=== PATIENT | female | born 1970 | race Caucasian/White ===

== ENCOUNTER → 2017-11-21 | Outpatient (CLI) | payer OTHER ==
[~2017-11-21] MED LIST: ALPR0.5T3 PO; NAPR-855 PO; OMEP20TA93 PO; [UNRECOGNIZED DRUG - CODE] PO
[2017-11-21 11:41] LABS: HEMATOCRIT 40.6 % (35.0-46.0); HEMOGLOBIN 13.4 GM/DL (11.6-15.3); MEAN CELL VOLUME 84.2 FL (80.0-100.0); MEAN CORPUSCULAR HEMOGLOBIN 27.7 PG (27.0-34.0); MEAN PLATELET VOLUME 8.9 FL (7.0-11.0); PLATELET COUNT 285 TH/MM3 (150-450); RED BLOOD COUNT 4.83 MIL/MM3 (4.00-5.30); RED CELL DISTRIBUTION WIDTH 13.6 % (11.6-17.2); WHITE BLOOD COUNT 9.8 TH/MM3 (4.0-11.0)
[2017-11-21 12:06] LABS: CALCIUM 8.8 MG/DL (8.5-10.1); CREATININE 0.84 MG/DL (0.50-1.00)
== END ==
LOC: CPRE 10:55
PROVIDERS: ATTEND Obstetrics & Gynecology
DX: Z01.812 Encounter for preprocedural laboratory examination (principal); N93.9 Abnormal uterine and vaginal bleeding, unspecified
CPT/HCPCS: 36415; 80048; 85027

== ENCOUNTER 2017-11-30 05:34 | Observation (INO) | payer OTHER ==
[~2017-11-30] VITALS: Ht 154.9 cm; Wt 74.3 kg
[~2017-11-30 05:34] MED LIST changes: -NAPR-855 PO
[2017-11-30] MEDS ORDERED: POVIDONE IODINE 5% (ANTISEPSIS KIT) 4 APPLICATIONS EACH NARE PRN (06:00)
[2017-11-30] MEDS ORDERED: LACTATED RINGER'S 1000 ML IV PRN (06:00)
[2017-11-30] MEDS ORDERED: CHLORHEXIDINE GLUCONATE 2 % 1 PACK (2 CLOTHS) TOPICAL PRN (06:00)
[2017-11-30] MEDS ORDERED: ceFAZolin 2 GM in NS 100 ML IV SCH (06:00)
[2017-11-30] MEDS ORDERED: SODIUM CHLORID 0.9% 500 ML IV PRN (06:00)
[2017-11-30] MEDS ORDERED: METOPROLOL TARTRATE 25 MG TAB PO PRN (06:00)
[2017-11-30] MEDS ORDERED: ACETAMINOPHEN 1000 MG/100 ML 100 ML IV ONE (06:28)
[2017-11-30] MEDS ORDERED: FAMOTIDINE 20 MG/2 ML VIAL ONE (06:29)
[2017-11-30] MEDS ORDERED: MIDAZOLAM HCL 2 MG/2 ML VIAL ONE ×2 (06:29→06:46)
[2017-11-30] MEDS ORDERED: APREPITANT 40 MG CAP ONE (06:46)
[2017-11-30] MEDS ORDERED: ONDANSETRON HCL 4 MG/2 ML VIAL ONE (06:46)
[2017-11-30] MEDS ORDERED: VASOPRESSIN 20 UNITS/ML VIAL ONE (06:57)
[2017-11-30] MEDS ORDERED: ESTROGENS CONJUGATED VAG CREA 15 APPL/30 GM TUBE ONE (06:57)
[2017-11-30] MEDS ORDERED: LIDOCAINE 1%/EPINEPHrine 1:100,000 SOLN 30 ML VIAL ONE (06:57)
[2017-11-30] MEDS ORDERED: DO NOT ADM ANY ANTICOAGULANT DRUGS PRN (09:00)
[2017-11-30] MEDS ORDERED: LACTATED RINGER'S 1000 ML INJ 1,000 ML IV SCH (09:18)
[2017-11-30] MEDS ORDERED: *MEPERIDINE 25 MG INJ VIAL PERIprocedural Use ONLY ONE (09:19)
--- NOTE | 2017-11-30 09:28 | HHI.PR ---
Immediate Post Op Note Procedure Date: Nov 30, 2017 Pre Op Diagnosis: 1. Dysmenorrhea 2. Abnormal uterine bleeding Post Op Diagnosis: Same as above Surgeon: Bronson Barraza Wellness Assistant(s): Dr. Pollock was present and scrubbed throughout the case - Ana TALBERT MS3 present and scrubbed throughout the case as well Procedure: Total vaginal hysterectomy, right salpingectomy Findings: Normal external female genitalia vagina and cervix, nonvisualized left ovary, normal-appearing right ovary and fallopian tube. Additional Information: Antibiotics: 2 g Ancef preoperatively. DVT prophylaxis: Sequential compression devices throughout the case Complications: None Specimen(s) removed: Uterus, cervix, right fallopian tube to pathology routine Estimated blood loss: 150 cc Anesthesia: General Drains: None Fluids: 1400cc IVF Urinary Output (mLs): 100 Patient to: PACU Patient Condition: Good Bronson Barraza MD Nov 30, 2017 09:28
[2017-11-30] MEDS ORDERED: IBUPROFEN 600 MG TAB PO PRN (09:30)
[2017-11-30] MEDS ORDERED: ONDANSETRON ODT 4 MG TAB PO PRN (09:30)
[2017-11-30] MEDS ORDERED: diphenhydrAMINE HCL 25 MG CAP PO PRN (09:30)
[2017-11-30] MEDS ORDERED: oxyCODONE/ACETAMINOPHEN 5 MG/325 MG TAB PO PRN ×2 (09:30)
[2017-11-30] MEDS ORDERED: SODIUM CHLORIDE 0.9% FLUSH 10 ML FLUSH IV FLUSH PRN (09:30)
[2017-11-30] MEDS ORDERED: KETOROLAC TROMETHAMINE 30 MG/ML (IVP) VIAL IV PUSH ONE ×2 (09:30→12:00)
[2017-11-30] MEDS ORDERED: *HYDROmorphone PF 1 MG VIAL PERIprocedural Use ONLY ONE (09:57)
--- NOTE | 2017-11-30 09:59 | MP ---
cc: Bronson Barraza MD DATE OF OPERATION: 11/30/2017 DATE OF : 1970 DATE OF PROCEDURE: 11/30/2017. PREOPERATIVE DIAGNOSES: 1. Dysmenorrhea. 2. Abnormal uterine bleeding. POSTOPERATIVE DIAGNOSES: 1. Dysmenorrhea. 2. Abnormal uterine bleeding. PROCEDURE PERFORMED: Total vaginal hysterectomy with right salpingectomy. SURGEON: Bronson Barraza MD MEDICAL CLAIMS PROCESSOR SURGEON: Pat Pollock MD, was present and scrubbed throughout the case. Medical Student year 3, Ana Garcia was present and scrubbed throughout the case as well. FINDINGS: Normal external female genitalia, vagina and cervix. Nonvisualized left ovary and fallopian tube. Normal right ovary and right fallopian tube. ANTIBIOTICS: 2 grams Ancef preoperatively. DVT PROPHYLAXIS: Sequential compression devices throughout the case. ANESTHESIA: General endotracheal. PREOPERATIVE MEDICATIONS: 1 gram p.o. Tylenol and 600 mg p.o. gabapentin. SPECIMENS: Uterus, cervix, and right fallopian tube to pathology, routine. ESTIMATED BLOOD LOSS: 150 mL. FLUID REPLACEMENT: 1400 mL lactated Ringer's. URINE OUTPUT: 100 mL, clear via Holman. COUNTS: Correct x 2. TIMEOUT: Done, correct. COMPLICATIONS: None. DISPOSITION: Stable to PACU, then to floor. INDICATIONS: This patient is a 47-year-old female that was seen in the outpatient setting for the above diagnosis. She was counseled on options, risks, benefits and alternatives and expected outcomes of each, and she elected for hysterectomy. Please see H and P and consent for further details. DESCRIPTION OF PROCEDURE: The patient was taken to the operating room, placed in [facility] cane stirrups. After anesthesia was found to be adequate, she was prepped and draped in a sterile fashion. A weighted speculum was placed posteriorly and a Lauren anteriorly after Holman was inserted and clamped after allowed to drain. 1% lidocaine with epinephrine was used to inject circumferentially around the vesicocervical transition, 20 mL approximately were. Using a scalpel, this cervicovaginal epithelium was incised circumferentially and bluntly dissected cephalad. A posterior colpotomy was made with Rice scissors and a weighted [place] was placed into the peritoneal cavity. Uterosacrals were clamped, transected and transfixed with a suture of 0 Vicryl. Anterior colpotomy was made sharply, and a Lauren placed anteriorly into the peritoneal cavity using serial clamp, cut, and tie technique with 0 Vicryl. The uterine arteries, cardinal ligaments, round ligaments and uteroovarian ligaments were taken. The specimen was removed from the abdomen. There was some bleeding along the right pedicle of the uteroovarian ligament and the distal end of the fallopian tube. This was reincorporated with suture and the fallopian tube was removed. The pedicles were reinspected. The pelvis was irrigated and everything was found to be hemostatic. The left ovary was not able to be visualized. The posterior vaginal mucosa was sutured to the posterior peritoneum with running locking 0 Vicryl. The uterosacrals were tied at the midline to plicate and provide support and a running, unlocked vertical closure of the cuff incorporating the uterosacrals was done with 0 Vicryl. The Holman was removed and the patient tolerated the procedure well. MD ARIA Patel/DAMIEN , 09:36 AM , 09:58 AM DELORES
[2017-11-30 10:30] VITALS: BP 119/74; PULSE 80; RESP 18; TEMP 97.4; O2SAT 99
[2017-11-30] MEDS ORDERED: LIDOCAINE HCL 1% PF 5 ML SYRINGE OTHER ONE (12:00)
[2017-11-30] MEDS ORDERED: LACTATED RINGER'S 1000 ML INJ 1,000 ML IV ONE (12:00)
[2017-11-30] MEDS ORDERED: PROPOFOL 200 MG/20 ML AMP IV ONE (12:00)
[2017-11-30] MEDS ORDERED: DEXAMETHASONE SOD PHOS 4 MG/ML VIAL IV ONE (12:00)
[2017-11-30] MEDS ORDERED: NEOSTIGMINE 5 MG/5 ML SYRINGE IV PUSH ONE (12:00)
[2017-11-30] MEDS ORDERED: ROCURONIUM INJ 50 MG/5 ML SYRINGE IV PUSH ONE (12:00)
[2017-11-30] MEDS ORDERED: ESMOLOL HCL 100 MG/10 ML VIAL IV ONE (12:00)
[2017-11-30] MEDS ORDERED: GLYCOPYRROLATE 1 MG/5 ML SYRINGE IV PUSH ONE (12:00)
[2017-11-30] MEDS: ONDANSETRON HCL 4 MG/2 ML VIAL IVP PRN ×2 (12:36→21:41)
[2017-11-30] MEDS: GABAPENTIN 100 MG CAP PO SCH ×2 (13:00→18:00)
[2017-11-30 14:00] VITALS: BP 120/79; PULSE 79; RESP 18; TEMP 97.5; O2SAT 99
[2017-11-30] MEDS: HYDROmorphone HCL PF 2 MG/ML VIAL IV PRN ×2 (14:18→21:43)
[2017-11-30 17:50] VITALS: BP 144/88; PULSE 83; RESP 15; TEMP 98.1; O2SAT 100
--- NOTE | 2017-11-30 17:51 | HHI.PR ---
Subjective Remarks pain controlled, having nausea, just tried some sips of reza riddhi, no emesis, voiding, ambulating in room, no flatus. Objective Vital Signs Vital Signs Date Time Temp Pulse Resp B/P (MAP) Pulse Ox O2 Delivery O2 Flow Rate FiO2 11/30/17 14:00 97.5 79 18 120/79 (93) 99 11/30/17 10:30 97.4 80 18 119/74 (89) 99 11/30/17 10:00 98.2 78 14 121/64 (83) 97 Nasal Cannula 2 11/30/17 09:45 75 15 116/63 (80) 94 11/30/17 09:30 80 13 122/66 (84) 94 11/30/17 09:15 86 11 110/60 (77) 99 11/30/17 09:10 98.2 87 13 123/72 (89) 100 Simple Mask 6 11/30/17 06:04 98.3 91 20 135/90 (105) 97 I/O 11/29/17 11/29/17 11/29/17 11/30/17 11/30/17 11/30/17 07:00 15:00 23:00 07:00 15:00 23:00 Intake Total 1400 ml Output Total 350 ml Balance 1050 ml Intake IV Total 1400 ml Output Urine Total 200 ml Estimated Blood Loss 150 ml Objective Remarks Chest is clear, regular rate and rhythm. Abdomen is soft and non-distended. Ext no CCE. A/P Assessment and Plan 47 yo s/p TVH and RS for AUB / Dysmenorrhea 1. POD #0: doing well, AF, VSS, continue IV fluids until tolerate PO, add phenergan as another option, continue routine post op care, AM CBC. Bronson Barraza MD Nov 30, 2017 17:51
--- NOTE | 2017-11-30 17:52 | HHI.DS ---
Discharge Summary Admission Date Nov 30, 2017 at 09:21 Discharge Date: Dec 01, 2017 Admitting Diagnosis AUB / Dysmenorrhea Procedures TVH, RS Brief History 47 yo who presented for scheduled hysterectomy, underwent successful TVH and RS, met milestones on POD #1 and was d/c home. Pt Condition on Discharge: Good Discharge Disposition: Discharge Home Discharge Instructions DIET: Follow Instructions for: As Tolerated, No Restrictions Activities you can perform: Regular-No Restrictions Activities to avoid: Driving for 24 hrs, Lifting/Bending, Sexual Activity Follow up Referrals: CUSTOMER RETENTION SPECIALIST - 2 Weeks @ [facility] with Bronson Barraza MD New Medications: Naproxen (Naproxen) 375 Mg Tab 375 MG PO BID for Pain Management, #60 TAB 0 Refills Continued Medications: Alprazolam (Alprazolam) 0.5 Mg Tab 0.5 MG PO Q6H PRN for ANXIETY, TAB 0 Refills Levothyroxine (Unithroid) 75 Mcg Tab 75 MCG PO DAILY for Thyroid, #30 TAB 0 Refills Omeprazole (Omeprazole) 20 Mg Tab 20 MG PO DAILY, #30 TAB 0 Refills Bronson Barraza MD Nov 30, 2017 17:52
[2017-11-30 20:00] VITALS: BP 125/78; PULSE 98; RESP 18; TEMP 98; O2SAT 98
[2017-11-30] MEDS ORDERED: PROMETHAZINE INJ 25 MG/ML VIAL IM PRN (20:00)
[2017-11-30] MEDS ORDERED: SODIUM CHLORIDE 0.9% FLUSH 10 ML FLUSH IV FLUSH SCH (21:00)
[2017-11-30] MEDS ORDERED: ZOLPIDEM TARTRATE 5 MG TAB PO PRN (21:00)
[2017-11-30 23:56] VITALS: BP 121/70; PULSE 98; RESP 18; TEMP 98.1
[2017-12-01 04:10] VITALS: BP 119/67; PULSE 88; RESP 18; TEMP 98.6
[2017-12-01 05:58] LABS: AUTOMATED NEUTROPHIL # 12.1 TH/MM3 (1.8-7.7); BASOPHIL % 0.2 % (0.0-2.0); EOSINOPHIL % 0.1 % (0.0-4.0); HEMATOCRIT 34.3 % (35.0-46.0); HEMOGLOBIN 11.5 GM/DL (11.6-15.3); LYMPH % 11.2 % (9.0-44.0); LYMPHOCYTE # 1.7 TH/MM3 (1.0-4.8); MEAN CELL VOLUME 83.1 FL (80.0-100.0); MEAN CORPUSCULAR HEMOGLOBIN 27.8 PG (27.0-34.0); MEAN CORPUSCULAR HGB CONC 33.5 % (32.0-36.0); MEAN PLATELET VOLUME 9.3 FL (7.0-11.0); MONO % 7.5 % (0.0-8.0); MONOCYTE # 1.1 TH/MM3 (0-0.9); PLATELET COUNT 249 TH/MM3 (150-450); RED BLOOD COUNT 4.13 MIL/MM3 (4.00-5.30); RED CELL DISTRIBUTION WIDTH 13.4 % (11.6-17.2); WHITE BLOOD COUNT 14.9 TH/MM3 (4.0-11.0)
[2017-12-01] MEDS ORDERED: LEVOTHYROXINE SODIUM 75 MCG TAB PO SCH (06:00)
[2017-12-01 08:00] VITALS: BP 113/75; PULSE 78; RESP 18; TEMP 97.6; O2SAT 98
[2017-12-01 08:10] VITALS: BP 113/75; PULSE 78; RESP 18; TEMP 97.6; O2SAT 98
[2017-12-01] MEDS ORDERED: NAPR-855 PO (08:19)
--- NOTE | 2017-12-01 08:22 | HHI.PR ---
Subjective Remarks Doing well, pain is well controlled, voiding, ambulating, desires to eat more this AM. Objective Vital Signs Vital Signs Date Time Temp Pulse Resp B/P (MAP) Pulse Ox O2 Delivery O2 Flow Rate FiO2 12/01/17 08:00 97.6 78 18 113/75 (88) 98 12/01/17 04:10 98.6 88 18 119/67 (84) 11/30/17 23:56 98.1 98 18 121/70 (87) 11/30/17 22:45 18 11/30/17 20:00 98.0 98 18 125/78 (94) 98 11/30/17 17:50 98.1 83 15 144/88 (106) 100 11/30/17 14:00 97.5 79 18 120/79 (93) 99 11/30/17 10:30 97.4 80 18 119/74 (89) 99 11/30/17 10:00 98.2 78 14 121/64 (83) 97 Nasal Cannula 2 11/30/17 09:45 75 15 116/63 (80) 94 11/30/17 09:30 80 13 122/66 (84) 94 11/30/17 09:15 86 11 110/60 (77) 99 11/30/17 09:10 98.2 87 13 123/72 (89) 100 Simple Mask 6 I/O 11/30/17 11/30/17 11/30/17 12/01/17 12/01/17 12/01/17 07:00 15:00 23:00 07:00 15:00 23:00 Intake Total 1400 ml 625 ml 125 ml Output Total 500 ml Balance 900 ml 625 ml 125 ml Intake IV Total 1400 ml 625 ml 125 ml Output Urine Total 350 ml Estimated Blood Loss 150 ml Result Diagram: 12/01/17 0513 Objective Remarks Chest is clear, regular rate and rhythm. Abdomen is soft and non-distended. Ext no CCE. A/P Assessment and Plan 47 yo s/p TVH and RS for AUB / Dysmenorrhea 1. POD #1: doing well, AF, VSS, AM labs appropriate, d/c home today, discussed post op precautions, expectations, and restrictions. Bronson Barraza MD Dec 01, 2017 08:22
[2017-12-01] MEDS: GABAPENTIN 100 MG CAP PO SCH (08:31)
== END 2017-12-01 10:13 | disposition home or self-care (01) ==
LOC: HSDC 05:34 → H1EA 09:21
PROVIDERS: ADMIT Obstetrics & Gynecology; ATTEND Obstetrics & Gynecology
DX: N94.6 Dysmenorrhea, unspecified (principal); N93.9 Abnormal uterine and vaginal bleeding, unspecified; D25.9 Leiomyoma of uterus, unspecified; N80.0 Endometriosis of uterus; N88.8 Other specified noninflammatory disorders of cervix uteri
CPT/HCPCS: 00940; 58262; 85025; 86850; 86900; 86901; 88307; 96374; 96375; 96376; G0378; J0131; J0690; J1100; J1170; J1885; J2175; J2250; J2405; J2710; J3010; J7120; J8501